=== PATIENT | male | born 1990 | race Caucasian/White ===

== ENCOUNTER 2020-12-23 14:01 | Emergency (ER) | payer SELFPAY ==
[~2020-12-23] VITALS: Ht 185.4 cm; Wt 81.6 kg
[~2020-12-23 14:01] MED LIST: CIPROFLOXACIN500 MG PO; HYDROCODONE BIT1 T11 PO; KEFLEX500 MG PO; NKHM PO; SILVADENE1% TP; ULTRAM50 MG PO
[2020-12-23] MEDS ORDERED: ZOFRAN4 MG SL (15:25)
== END 2020-12-23 17:00 | disposition home or self-care (01) ==
LOC: ED 14:01
DX: R11.2 Nausea with vomiting, unspecified (principal); Z20.822 Contact with and (suspected) exposure to COVID-19; R10.9 Unspecified abdominal pain; R19.7 Diarrhea, unspecified; Z79.2 Long term (current) use of antibiotics; Z79.899 Other long term (current) drug therapy